=== PATIENT | female | born 1985 | race Caucasian/White ===

== ENCOUNTER 2021-06-01 09:40 | Outpatient (REF) | payer OTHER, SELFPAY | END 2021-06-01 09:41 | disposition home or self-care (01) | LOC: HO.HOSX 09:40 | PROVIDERS: Visit Provider Physician Assistant | DX: Z13.89 Encounter for screening for other disorder (principal) ==

== ENCOUNTER → 2021-06-07 13:58 | Outpatient (BNVA) | payer OTHER, SELFPAY | PROVIDERS: Visit Provider Orthopaedic Surgery | DX: M17.0 Bilateral primary osteoarthritis of knee (principal) | CPT/HCPCS: 20610; 99212; J1040 ==

== ENCOUNTER 2024-04-08 12:24 | Outpatient (REF) | payer OTHER, SELFPAY | END 2024-04-08 12:25 | disposition home or self-care (01) | LOC: HO.HOSX 12:24 | PROVIDERS: Visit Provider Orthopaedic Surgery | DX: Z13.89 Encounter for screening for other disorder (principal) ==

== ENCOUNTER 2024-04-26 12:19 | Outpatient (REF) | payer OTHER, SELFPAY | END 2024-04-26 12:20 | disposition home or self-care (01) | LOC: HO.HOSX 12:19 | PROVIDERS: Visit Provider Orthopaedic Surgery | DX: Z13.89 Encounter for screening for other disorder (principal) ==